=== PATIENT | female | born 1955 | race Caucasian/White ===

== ENCOUNTER 2018-05-10 10:00 | Day surgery (SDC) | payer OTHER ==
[2018-05-10 11:15] VITALS: BMI 22.0
[2018-05-10 12:06] VITALS: TEMP 97.7
--- NOTE | 2018-05-10 12:11 | PROC ---
Endoscopy Procedure Endoscopy procedure completed. Please see scanned procedure report.
[2018-05-10 12:50] VITALS: PULSE 60
[2018-05-10 13:31] VITALS: BP 121/67
--- NOTE | 2018-05-11 17:38 | PATH ---
Surgical Pathology Report Patient Name: ARMANDO ROSADO [facility]. Rec. #: [id number] /Age/Gender: 1955 (Age: 62) / F Account: <[id number]> Location: [facility]ENDOSCOPY Taken: 05/10/2018 Received: 05/10/2018 Reported: 05/11/2018 Physicians: Davi Aparicio M.D. Specimen(s) Received BX CECUM POLYP Clinical History Colon screening Postoperative diagnosis: Colon polyp Final Diagnosis CECUM POLYP, BIOPSY: COLONIC MUCOSA WITH SURFACE HYPERPLASTIC CHANGE AND LYMPHOID AGGREGATE. Electronically Signed Shraddha Lowery M.D. Gross Description Received in formalin, labeled "biopsy polyp cecum" are 3 cheng, irregular portions of soft tissue ranging from 0.2-0.4 cm. in greatest dimension. The specimens are submitted in toto in one cassette. /05/10/201805/10/2018
== END 2018-05-10 13:30 | disposition home or self-care (01) ==
LOC: JASU-ENDO 10:00
PROVIDERS: ATTEND Internal Medicine Gastroenterology
PROC: 0DBH8ZX Excision of Cecum, Via Natural or Artificial Opening Endoscopic, Diagnostic (ICD-10-PCS; principal; 2018-05-10 10:00)
DX: Z12.11 Encounter for screening for malignant neoplasm of colon (principal); D12.0 Benign neoplasm of cecum; E03.9 Hypothyroidism, unspecified

== ENCOUNTER 2019-07-23 11:51 | Emergency (ER) | payer OTHER ==
[2019-07-23 11:59] VITALS: BP 113/62; PULSE 63; TEMP 97.4; BMI 22.2
--- NOTE | 2019-07-23 13:14 | PDOC ---
History of Present Illness - General Chief Complaint: Ear Problem Stated Complaint: RT. EAR PAIN Time Seen by Provider: 07/23/19 12:20 - History of Present Illness Initial Comments: 07/23/19 13:08 CHIEF COMPLAINT: ear pain HISTORY OF PRESENT ILLNESS: 63 yo F with hx of "thyroid problem" presents to fast track with discomfort to R ear x 3 days and sensation of "water in the ear. " Patient denies any fever, chills, nausea, vomiting, diarrhea, headache or dizziness. Denies any change in vision, change in speech, or weakness. No recent travel or sick contacts. PAST MEDICAL HISTORY: Denies past medical history FAMILY HISTORY: Denies SOCIAL HISTORY: Denies tobacco, alcohol, illicit drug use. SURGICAL HISTORY: Denies ALLERGIES: No known drug allergies REVIEW OF SYSTEMS General/Constitutional: Denies fever or chills. Denies weakness, weight change. HEENT: Ear pain x 3 days. Denies change in vision. Denies ear pain or discharge. Denies sore throat. Cardiovascular: Denies chest pain or shortness of breath. Respiratory: Denies cough, wheezing, or hemoptysis. Gastrointestinal: Denies nausea, vomiting, diarrhea or constipation. Denies rectal bleeding. Genitourinary: Denies dysuria, frequency, or change in urination. Musculoskeletal: Denies joint or muscle swelling or pain. Denies neck or back pain. Skin and breasts: Denies rash or easy bruising. Neurologic: Denies headache, vertigo, loss of consciousness, or loss of sensation. PHYSICAL EXAM General Appearance: Well-appearing, appropriately dressed. No apparent distress. HEENT: Mild erythema to R auditory canal, dullness to R TM. EOMI, PERRLA, normal voice. No conjunctival pallor. No photophobia, scleral icterus. Neck: Supple. Trachea midline. No tenderness, rigidity, carotid bruit, stridor , lymphadenopathy, or thyromegaly. Respiratory/Chest: Lungs CTAB. No shortness of breath, chest tenderness, respiratory distress, accessory muscle use. No crackles, rales, rhonchi, stridor , wheezing, dullness Cardiovascular: RRR. S1, S2. No JVD, murmur, bradycardia, tachycardia. Vascular Pulses: Dorsalis-Pedis (R): 2+, Dorsalis-Pedis (L): 2+ Gastrointestinal/Abdominal: Normal bowel sounds. Abdomen soft, non-distended. No tenderness or rebound tenderness. No organomegaly, pulsatile mass, guarding , hernia, hepatomegaly, splenomegaly. Lymphatic: No adenopathy, tenderness. Musculoskeletal/Extremities: Normal inspection. FROM of all extremities, normal capillary refill. Pelvis Stable. No CVA tenderness. No tenderness to extremities, pedal edema, swelling, erythema or deformity. Integumentary: Appropriate color, dry, warm. No cyanosis, erythema, jaundice or rash Neurologic: hat presser II-XII intact. Fully oriented, alert. Appropriate mood/affect. Motor strength 5/5. No appreciable EOM palsy, facial droop or sensory deficit. A&Ox3, follow commands, respond appropriately CN2-12: conjugate gaze, pupil round, equal and reactive to light. Visual field full to confrontation. EOMI without nystagmus, pursuit is smooth without saccade. Facial sensation and muscle activation intact bilaterally. Hearing intact bilaterally. Palate elevate symmetrically. Shoulder shrug and neck turn full strength. Tongue protrude midline. Motor: UE and LE strength 5/5 throughout bilaterally. Muscle tone and bulk normal. Cerebellar: Rapid-alternating movement with regular rhythm without bradykinesia. [id number]-[id number] and [id number]-vv-[id number] intact bilaterally without dysmetria or overshoot. Gait narrow based. No shuffling. Full hip flexion and knee flexion. Negative Romberg No involuntary movement noted. No pronator drift. No clonus. Past History - Past Medical History Allergies/Adverse Reactions: Allergies Allergy/AdvReac Type Severity Reaction Status Date / Time No Known Allergies Allergy Verified 07/23/19 11:59 Home Medications: Ambulatory Orders Levothyroxine [Synthroid -] 25 mcg PO DAILY 05/10/18 Amoxicillin/Potassium Clav [Augmentin 875-125 Tablet] 1 each PO BID #14 tablet 07/23/19 Neomycin/Polymyxin B/Hydrocort [Dbdehshp-Gmymnjnlg-Vd Ear Susp] 4 drop AD TID 5 Days #1 bottle 07/23/19 COPD: No Thyroid Disease: Yes - Suicide/Smoking/Psychosocial Hx Smoking History: Never smoked Hx Alcohol Use: No Drug/Substance Use Hx: No Substance Use Type: None *Physical Exam - Vital Signs Last Vital Signs Temp Pulse Resp BP Pulse Ox 97.4 F L 63 18 113/62 98 07/23/19 11:57 07/23/19 11:57 07/23/19 11:57 07/23/19 11:57 07/23/19 11:57 Medical Decision Making - Medical Decision Making 07/23/19 13:11 63 yo F with hx of "thyroid problem" presents to fast track with discomfort to R ear x 3 days and sensation of "water in the ear." Clinical presentation suggestive of AOM and otitis externa. Advised patient to take medication as prescribed and follow up with PCP within the next week. Advised patient of signs and symptoms for return to ED. Patient verbalized understanding and agrees to plan. *DC/Admit/Observation/Transfer Diagnosis at time of Disposition: Otitis media Qualifiers: Otitis media type: unspecified Chronicity: acute Qualified Code(s): H66.90 - Otitis media, unspecified, unspecified ear Otitis externa Qualifiers: Otitis externa type: unspecified type Chronicity: acute Laterality: right Qualified Code(s): H60.501 - Unspecified acute noninfective otitis externa, right ear - Discharge Dispostion Disposition: HOME Condition at time of disposition: Stable Decision to Admit order: No - Prescriptions Prescriptions: Amoxicillin/Potassium Clav [Augmentin 875-125 Tablet] 1 each PO BID #14 tablet Neomycin/Polymyxin B/Hydrocort [Gyenilie-Ooxlgdelw-Yf Ear Susp] 4 drop AD TID 5 Days #1 bottle - Referrals Referrals: Brendon Hazel MD [Staff Physician] - - Patient Instructions Printed Discharge Instructions: DI for Otitis Externa, Middle Ear Infection Additional Instructions: Please use medications as prescribed. As discussed, if your symptoms persist for more than one week, follow up with the specialist. If you develop any change in vision, weakness, slurred speech, difficulty walking, headache, dizziness, or any new or worsening symptoms, please return to the ER immediately. - Post Discharge Activity
== END 2019-07-23 13:28 | disposition home or self-care (01) ==
LOC: JERFT 11:51
DX: H66.91 Otitis media, unspecified, right ear (principal); H60.501 Unspecified acute noninfective otitis externa, right ear
CPT/HCPCS: 99281-25

== ENCOUNTER 2020-12-19 09:41 | Day surgery (SDC) | payer OTHER ==
[2020-12-17 16:34] VITALS: BMI 20.5
[2020-12-19] MEDS ORDERED: LIDOCAINE HCL/PF 2% SDV 5ML VIAL ONE (09:58)
[2020-12-19] MEDS ORDERED: PROPOFOL 20 ML ONE ×2 (09:59)
[2020-12-19 10:08] VITALS: TEMP 98.5
[2020-12-19 11:40] VITALS: BP 110/78; PULSE 86
== END 2020-12-19 11:15 | disposition home or self-care (01) ==
LOC: FASU-ENDO 09:41
PROVIDERS: ATTEND Internal Medicine Gastroenterology
PROC: 0DB78ZX Excision of Stomach, Pylorus, Via Natural or Artificial Opening Endoscopic, Diagnostic (ICD-10-PCS; 2020-12-19)
PROC: 0DB48ZX Excision of Esophagogastric Junction, Via Natural or Artificial Opening Endoscopic, Diagnostic (ICD-10-PCS; 2020-12-19)
PROC: 0DB98ZX Excision of Duodenum, Via Natural or Artificial Opening Endoscopic, Diagnostic (ICD-10-PCS; principal; 2020-12-19 10:19)
DX: K22.8 Other specified diseases of esophagus (principal); K21.9 Gastro-esophageal reflux disease without esophagitis; K31.89 Other diseases of stomach and duodenum
CPT/HCPCS: 88305-TC; 88342-TC